=== PATIENT | male | born 1990 | race Two or more races ===

== ENCOUNTER 2018-11-08 11:37 | Emergency (ER) | payer SELFPAY ==
--- NOTE | 2018-11-08 12:34 | ER Document Report ---
ED Medical Screen (RME) - General Chief Complaint: Groin Injury Stated Complaint: ABDOMINAL PAIN Time Seen by Provider: 11/08/18 12:33 Mode of Arrival: Ambulatory Information source: Patient Notes: 28-year-old male with no reported past medical history who is Turkish-speaking only presents with complaint of right inguinal hernia that has been present for 2 years. Patient states that it is not more painful but that it is occurring more frequently. Patient reports that he can reduce the hernia when laying down. I have greeted and performed a rapid initial assessment of this patient. A comprehensive ED assessment and evaluation of the patient, analysis of test results and completion of medical decision making process we will be contacted by additional ED providers. PHYSICAL EXAMINATION: Vital signs reviewed-within normal limits GENERAL: Well-appearing, well-nourished and in no acute distress. LUNGS: No respiratory distress Musculoskeletal: Normal range of motion NEUROLOGICAL: Normal speech, normal gait. PSYCH: Normal mood, normal affect. SKIN: Warm, Dry, normal turgor, no rashes or lesions noted. TRAVEL OUTSIDE OF THE [place] IN LAST 30 DAYS: No - HPI Onset: Other Quality of pain: No pain Severity: None Associated Symptoms: denies: Abdominal pain, Diarrhea, Fever, Nausea Exacerbated by: Denies Relieved by: Denies Similar symptoms previously: Yes Recently seen / treated by doctor: No - Related Data Smoking: Non-smoker Frequency of alcohol use: Occasional Drug Abuse: None Allergies/Adverse Reactions: No Known Allergies Allergy (Verified 11/08/18 11:39) Past Medical History - Social History Chew tobacco use (# tins/day): No Frequency of alcohol use: Occasional Drug Abuse: None Renal/ Medical History: Denies: Hx Peritoneal Dialysis Physical Exam - Vital signs Vitals: Temp Pulse Resp BP Pulse Ox 99.1 F 82 18 169/97 H 99 11/08/18 11:56 11/08/18 11:56 11/08/18 11:56 11/08/18 11:56 11/08/18 11:56 Course - Vital Signs Vital signs: Temp Pulse Resp BP Pulse Ox 99.1 F 82 18 169/97 H 99 11/08/18 11:56 11/08/18 11:56 11/08/18 11:56 11/08/18 11:56 11/08/18 11:56
--- NOTE | 2018-11-08 15:30 | ER Document Report ---
ED General - General Chief Complaint: Groin Injury Stated Complaint: ABDOMINAL PAIN Time Seen by Provider: 11/08/18 12:33 Mode of Arrival: Ambulatory Notes: 28-year-old male with unknown past medical history Setswana-speaking presents to the emergency department for a hernia. He states that he has had the hernia for about 12 years and it has gotten bigger over the last couple of days causing him to get seen in the emergency department. He says he is able to reduce it typically but has been unable to. He denies any pain. He states that he is able to have bowel movements. He denies any change in color. He denies abdominal pain. He denies any testicular pain. Denies chest pain or shortness of breath. TRAVEL OUTSIDE OF THE [place] IN LAST 30 DAYS: No - Related Data Allergies/Adverse Reactions: No Known Allergies Allergy (Verified 11/08/18 11:39) Past Medical History - General Information source: Patient - Social History Smoking Status: Current Every Day Smoker Chew tobacco use (# tins/day): No Frequency of alcohol use: Occasional Drug Abuse: None Family History: Reviewed & Not Pertinent Patient has suicidal ideation: No Patient has homicidal ideation: No Renal/ Medical History: Denies: Hx Peritoneal Dialysis Review of Systems - Review of Systems Constitutional: No symptoms reported EENT: No symptoms reported Cardiovascular: No symptoms reported Respiratory: No symptoms reported Gastrointestinal: See HPI Genitourinary: See HPI Male Genitourinary: See HPI Musculoskeletal: No symptoms reported Skin: Change in color Hematologic/Lymphatic: No symptoms reported Neurological/Psychological: No symptoms reported Physical Exam - Vital signs Vitals: Temp Pulse Resp BP Pulse Ox 99.1 F 82 18 169/97 H 99 11/08/18 11:56 11/08/18 11:56 11/08/18 11:56 11/08/18 11:56 11/08/18 11:56 - Notes Notes: Reviewed vital signs and nursing note as charted by RN. CONSTITUTIONAL: Well-appearing, well-nourished, acting appropriately for age HEAD: Normocephalic, atraumatic, no swelling EYES: PERRL, Conjunctivae clear, no drainage, EOMI, no scleral icterus ENT: External ears without lesions, External auditory canal is patent, TMs without erythema, landmarks clear and well visualized, no rhinorrhea, Pharynx without erythema or lesions, no tonsillar hypertrophy, airway patent, mucous membranes pink and moist NECK: Supple, no cervical lymphadenopathy, no masses CARD: Regular rate and rhythm, no murmurs, no rubs, no gallops, capillary refill < 2 seconds, symmetric pulses RESP: The lungs are clear to auscultation bilaterally, no wheezing, no rales, no rhonchi. Respiratory rate and effort are normal, normal chest excursion. No respiratory distress, no retractions, no stridor, no nasal flaring, no accessory muscle use. ABD/GI: Normal bowel sounds, non-distended, soft, non-tender, no rebound, no guarding, no palpable organomegaly EXT: Normal ROM in all joints, non-tender to palpation, no effusions, no edema SKIN: Normal color for age and race, warm, dry, good turgor, no acute lesions noted NEURO: No facial asymmetry, moves all extremities equally, motor and sensory function intact : Reducible R inguinal hernia, no color changes, approximate size of a softball. Course - Re-evaluation Re-evalutation: 11/08/18 15:32 28-year-old Setswana-speaking male presents to the emergency department for reducible hernia. He states that he does not have any pain, and has not had any problems with bowel movements. No evidence of incarceration. Patient seen with Dr. Mckeon, surgeon, who reduced hernia at bedside. He stated there was no surgical emergency at this time. He did state that the patient will require surgery and if possible he could follow-up in his office. I have given the patient information for the [facility] to attempt to get referral. - Vital Signs Vital signs: Temp Pulse Resp BP Pulse Ox 99.1 F 82 18 169/97 H 99 11/08/18 11:56 11/08/18 11:56 11/08/18 11:56 11/08/18 11:56 11/08/18 11:56 Discharge - Discharge Clinical Impression: Hernia Condition: Stable Disposition: HOME, SELF-CARE Instructions: Hernia ([facility], [facility]) Additional Instructions: Please call the [facility] after you leave the emergency department. Referrals: [facility] [Provider Group] - Follow up as needed
[2018-11-08 16:01] VITALS: BP 149/94
== END 2018-11-08 16:06 | disposition home or self-care (01) ==
LOC: ER 11:37
DX: K46.9 Unspecified abdominal hernia without obstruction or gangrene (principal); R10.9 Unspecified abdominal pain; F17.200 Nicotine dependence, unspecified, uncomplicated
CPT/HCPCS: 99283